=== PATIENT | female | born 1960 | race Caucasian/White ===

== ENCOUNTER → 2019-11-09 | Outpatient (CLI) | payer MEDICARE | END | disposition home or self-care (01) | LOC: RAD 16:09 | PROVIDERS: ATTEND Emergency Medicine | DX: M79.89 Other specified soft tissue disorders (principal); M79.662 Pain in left lower leg ==

== ENCOUNTER 2019-11-18 09:33 | Inpatient (IN) | payer MEDICARE, OTHER ==
[~2019-11-18] VITALS: Ht 160 cm; Wt 69.5 kg
--- NOTE | 2019-11-18 09:53 | NUR ---
FIRST CALL PT IN RESTROOM
[2019-11-18] MEDS ORDERED: ONDANSETRON 2MG/ML, 2ML ONE (11:21)
[2019-11-18] MEDS ORDERED: DICYCLOMINE 10 MG/ML, 2ML ONE (11:21)
[2019-11-18 11:27] LABS: MICROSCOPIC INDICATED
[2019-11-18 11:29] LABS: BASOPHILS % (AUTO) 0 % (0-1); EOSINOPHILS # (AUTO) 0.03 x10^3/uL (0-0.4); EOSINOPHILS % (AUTO) 0 % (1-7); LYMPHOCYTES # (AUTO) 1.41 x10^3/uL (1-3.4); LYMPHOCYTES % (AUTO) 8 % (22-44); MD NO; MEAN CORPUSCULAR HEMOGLOBIN 30.1 pg (27.0-34.8); MEAN CORPUSCULAR HGB CONC 33.3 g/dL (32.4-35.8); MEAN PLATELET VOLUME 8.8 fL (7.4-10.4); MONOCYTES # (AUTO) 0.63 x10^3/uL (0.2-0.8); MONOCYTES % (AUTO) 4 % (2-9); NEUTROPHILS # (AUTO) 15.51 x10^3/uL (1.8-6.8); NEUTROPHILS % (AUTO) 88 % (42-75); PLATELET COUNT 309 x10^3/uL (130-400); RED BLOOD COUNT 4.92 x10^6/uL (3.82-5.3); RED CELL DISTRIBUTION WIDTH 13.7 % (9.6-15.2)
--- NOTE | 2019-11-18 11:29 | NUR ---
PT RESTING IN BED, MEDICATED FOR N/V/D PER ORDERS. PT ON MONITORS,VSS. PT AWARE NEEDS STOOL SAMPLE. PT WITH CALL LIGHT IN REACH, WILL REASSESS. CONT TO MONITOR.
[2019-11-18 11:38] LABS: ALANINE AMINOTRANSFERASE 19 U/L (12-78); ALBUMIN 3.3 g/dL (3.4-5.0); ANION GAP 9 mmol/L (5-15); CALCIUM 8.8 mg/dL (8.5-10.1); CHLORIDE 110 mmol/L (98-107)
[2019-11-18 11:41] LABS: ALKALINE PHOSPHATASE 112 U/L (45-117); BILIRUBIN,TOTAL 0.5 mg/dL (0.2-1.0); TOTAL PROTEIN 7.2 g/dL (6.4-8.2)
[2019-11-18 11:46] LABS: INTERNATIONAL NORMALIZED RATIO 0.96 (0.93-1.1); PROTHROMBIN TIME 10.2 Seconds (9.6-11.5)
[2019-11-18] MEDS ORDERED: SODIUM CHLORIDE 0.9% 1,000ML IVBOLUS ONE (12:00)
[2019-11-18] MEDS ORDERED: ONDANSETRON 2MG/ML, 2ML IVPush ONE (12:00)
[2019-11-18] MEDS ORDERED: SODIUM CHLORIDE FLUSH 10ML SYR IVF ONE (12:00)
[2019-11-18] MEDS ORDERED: DICYCLOMINE 10 MG/ML, 2ML IM ONE (12:00)
--- NOTE | 2019-11-18 12:00 | NUR ---
REPORT GIVEN TO YANN AVERY.
[2019-11-18] MEDS ORDERED: OMNIPAQUE 350 MG/ML, 100ML BOTTLE ONE (12:37)
--- NOTE | 2019-11-18 13:49 | NUR ---
PT ATEMPTED TO PROVIDE A STOOL SAMPLE WITH NO LUCK. PT STATED SHE WILL TRY AGIAN SHORTLY
[2019-11-18] MEDS ORDERED: METRONIDAZOLE PMX 500MG/100ML 100 ML IV ONE (14:00)
[2019-11-18] MEDS ORDERED: METRONIDAZOLE PMX 500MG/100ML 100 ML ONE (14:01)
[2019-11-18 16:08] VITALS: BP 133/81
[2019-11-18] MEDS ORDERED: ONDANSETRON ODT 4 MG PO PRN (16:30)
[2019-11-18] MEDS ORDERED: ACETAMINOPHEN 325 MG TABLET PO PRN (16:30)
[2019-11-18] MEDS ORDERED: ENALAPRILAT 1.25 MG/ML, 2ML IVPush PRN (16:30)
[2019-11-18] MEDS ORDERED: ALBUTEROL HFA 90 MCG/SPRAY INH PRN (16:30)
[2019-11-18] MEDS ORDERED: DIAZEPAM 5 MG TABLET PO PRN (16:30)
[2019-11-18] MEDS ORDERED: ONDANSETRON 2MG/ML, 2ML IVPush PRN (16:30)
[2019-11-18] MEDS ORDERED: LABETALOL 5MG/ML, 20ML IVPush PRN (16:30)
[2019-11-18] MEDS: VANCOMYCIN 50 MG/ML ORAL SUSP PO SCH ×2 (17:14→23:02)
[2019-11-18] MEDS: NS + 20MEQ KCL 1,000 ML IV SCH (17:14)
[2019-11-18] MEDS: ENOXAPARIN 40 MG/0.4 ML SQ SCH (17:14)
[2019-11-18] MEDS: PIPERACILLIN/TAZO/PMX 4.5GM 100 ML IV SCH (18:26)
[2019-11-18] MEDS ORDERED: DICYCLOMINE 10 MG/ML, 2ML IM PRN (19:00)
[2019-11-18 19:14] VITALS: BP 131/82
[2019-11-18] MEDS: FAMOTIDINE 20 MG TABLET PO SCH (21:48)
[2019-11-18] MEDS: KETOROLAC 30 MG/1 ML IV PRN (23:02)
[2019-11-18 23:34] LABS: CLOSTRIDIUM DIFFICILE ANTIGEN NEGATIVE; CLOSTRIDIUM DIFFICILE TOXIN NEGATIVE (Negative)
[2019-11-19] MEDS: PIPERACILLIN/TAZO/PMX 4.5GM 100 ML IV SCH ×5 (00:55→23:45)
[2019-11-19 01:16] VITALS: BP 127/80
[2019-11-19 06:17] LABS: ANION GAP 6 mmol/L (5-15); CALCIUM 7.9 mg/dL (8.5-10.1); CHLORIDE 113 mmol/L (98-107); CREATININE 0.77 mg/dL (0.55-1.02)
[2019-11-19] MEDS: VANCOMYCIN 50 MG/ML ORAL SUSP PO SCH (06:20)
[2019-11-19] MEDS: KETOROLAC 30 MG/1 ML IV PRN (06:20)
[2019-11-19 06:21] LABS: MEAN CORPUSCULAR HGB CONC 33.1 g/dL (32.4-35.8); MEAN PLATELET VOLUME 8.5 fL (7.4-10.4); PLATELET COUNT 236 x10^3/uL (130-400); RED BLOOD COUNT 4.19 x10^6/uL (3.82-5.3); RED CELL DISTRIBUTION WIDTH 14.1 % (9.6-15.2)
[2019-11-19 06:43] LABS: BASOPHILS # (AUTO) 0.05 x10^3/uL (0-0.1); BASOPHILS % (AUTO) 1 % (0-1); EOSINOPHILS # (AUTO) 0.13 x10^3/uL (0-0.4); EOSINOPHILS % (AUTO) 1 % (1-7); LYMPHOCYTES # (AUTO) 1.56 x10^3/uL (1-3.4); LYMPHOCYTES % (AUTO) 15 % (22-44); MD SCAN; MONOCYTES # (AUTO) 0.74 x10^3/uL (0.2-0.8); MONOCYTES % (AUTO) 7 % (2-9); NEUTROPHILS # (AUTO) 7.74 x10^3/uL (1.8-6.8); NEUTROPHILS % (AUTO) 76 % (42-75)
[2019-11-19] MEDS: NS + 20MEQ KCL 1,000 ML IV SCH (06:47)
[2019-11-19 07:50] VITALS: BP 124/76
[2019-11-19] MEDS: FLUTICASONE/VILANTEROL 200-25MCG/INH INH SCH (08:11)
[2019-11-19] MEDS: FAMOTIDINE 20 MG TABLET PO SCH ×2 (08:54→21:00)
[2019-11-19] MEDS: POTASSIUM CHLORIDE 20 MEQ in SODIUM CHLORIDE 0.45% 1,000 ML IV SCH (12:05)
[2019-11-19 13:05] VITALS: BP 108/69
[2019-11-19] MEDS: ENOXAPARIN 40 MG/0.4 ML SQ SCH (18:32)
[2019-11-19 20:51] VITALS: BP 120/83
[2019-11-20 00:16] VITALS: BP 118/72
[2019-11-20] MEDS: POTASSIUM CHLORIDE 20 MEQ in SODIUM CHLORIDE 0.45% 1,000 ML IV SCH (04:30)
[2019-11-20 04:50] LABS: ANION GAP 5 mmol/L (5-15); CHLORIDE 114 mmol/L (98-107)
[2019-11-20 04:51] LABS: CREATININE 0.82 mg/dL (0.55-1.02)
[2019-11-20 04:53] LABS: BASOPHILS # (AUTO) 0.03 x10^3/uL (0-0.1); BASOPHILS % (AUTO) 0 % (0-1); EOSINOPHILS # (AUTO) 0.21 x10^3/uL (0-0.4); EOSINOPHILS % (AUTO) 3 % (1-7); LYMPHOCYTES # (AUTO) 1.41 x10^3/uL (1-3.4); LYMPHOCYTES % (AUTO) 19 % (22-44); MD NO; MEAN PLATELET VOLUME 8.8 fL (7.4-10.4); MONOCYTES # (AUTO) 0.56 x10^3/uL (0.2-0.8); MONOCYTES % (AUTO) 8 % (2-9); NEUTROPHILS # (AUTO) 5.25 x10^3/uL (1.8-6.8); NEUTROPHILS % (AUTO) 71 % (42-75); PLATELET COUNT 214 x10^3/uL (130-400); RED BLOOD COUNT 4.16 x10^6/uL (3.82-5.3); RED CELL DISTRIBUTION WIDTH 14.1 % (9.6-15.2)
[2019-11-20] MEDS ORDERED: ALBUTEROL HFA 90 MCG/SPRAY INH PRN (05:00)
[2019-11-20] MEDS: FLUTICASONE/VILANTEROL 200-25MCG/INH INH SCH (06:30)
[2019-11-20] MEDS: PIPERACILLIN/TAZO/PMX 4.5GM 100 ML IV SCH ×3 (06:36→18:28)
[2019-11-20] MEDS ORDERED: POTASSIUM CHLORIDE 20 MEQ TAB.ER.PRT PO ONE (07:30)
[2019-11-20 07:51] VITALS: BP 130/73
[2019-11-20] MEDS: FAMOTIDINE 20 MG TABLET PO SCH ×2 (08:10→21:19)
[2019-11-20] MEDS: SIMETHICONE 125 MG CHEW TAB PO PRN ×2 (09:49→17:14)
[2019-11-20] MEDS ORDERED: LOPERAMIDE 2 MG CAPSULE PO ONE (10:00)
[2019-11-20] MEDS: LACTOBACILLUS CHEW TABLET PO SCH ×3 (12:49→21:20)
[2019-11-20 13:18] VITALS: BP 100/67
[2019-11-20] MEDS: ENOXAPARIN 40 MG/0.4 ML SQ SCH (17:14)
[2019-11-20] MEDS: LOPERAMIDE 2 MG CAPSULE PO PRN (17:14)
[2019-11-20 19:32] VITALS: BP 113/73
[2019-11-21] MEDS: PIPERACILLIN/TAZO/PMX 4.5GM 100 ML IV SCH ×2 (00:29→05:53)
[2019-11-21] MEDS: SIMETHICONE 125 MG CHEW TAB PO PRN ×2 (00:29→08:02)
[2019-11-21 01:10] VITALS: BP 120/75
[2019-11-21 03:44] LABS: ANION GAP 9 mmol/L (5-15); CALCIUM 8.1 mg/dL (8.5-10.1); CHLORIDE 112 mmol/L (98-107)
[2019-11-21 03:45] LABS: CREATININE 0.89 mg/dL (0.55-1.02)
[2019-11-21] MEDS: LACTOBACILLUS CHEW TABLET PO SCH (05:53)
[2019-11-21] MEDS: LOPERAMIDE 2 MG CAPSULE PO PRN (08:02)
[2019-11-21] MEDS: FAMOTIDINE 20 MG TABLET PO SCH (08:02)
[2019-11-21] MEDS: FLUTICASONE/VILANTEROL 200-25MCG/INH INH SCH (08:03)
[2019-11-21 08:05] VITALS: BP 131/70
[2019-11-21] MEDS ORDERED: LEVO750T6 PO (10:35)
[2019-11-21] MEDS ORDERED: METR-90 PO (10:35)
[2019-11-21] MEDS ORDERED: SIME125T PO (10:35)
[2019-11-21] MEDS ORDERED: LOPE2CAP PO (10:35)
== END 2019-11-21 12:10 | disposition home or self-care (01) | DRG 872 ==
LOC: ED 10:31 → EDIP 13:04 → 3N 15:33
PROVIDERS: ADMIT Hospitalist; ATTEND Hospitalist
DX: A41.9 Sepsis, unspecified organism (principal); A09 Infectious gastroenteritis and colitis, unspecified; E87.2 Acidosis; E86.0 Dehydration; E87.6 Hypokalemia; M06.9 Rheumatoid arthritis, unspecified; I10 Essential (primary) hypertension; G89.0 Central pain syndrome; J45.909 Unspecified asthma, uncomplicated; R65.20 Severe sepsis without septic shock; Z80.7 Family history of other malignant neoplasms of lymphoid, hematopoietic and related tissues; Z98.41 Cataract extraction status, right eye
CPT/HCPCS: 36415; 74177; 80048; 80053; 81001; 83605; 83690; 83735; 84100; 85025; 85610; 87040; 87046; 87077; 87086; 87186; 87324; 87427; 89055; 96374; 96375; G0378; J1650; J1885; J2405; J2543; J3370; J3480; Q9967; J0500; J7030

== ENCOUNTER 2020-06-24 12:16 | Outpatient (CLI) | payer MEDICARE, OTHER ==
[~2020-06-24 12:16] MED LIST: LEVO750T6 PO; LOPE2CAP PO; METR-90 PO; SIME125T PO
== END 2020-06-24 23:59 | disposition home or self-care (01) ==
LOC: CFH 12:16
PROVIDERS: ATTEND Internal Medicine
DX: Z12.31 Encounter for screening mammogram for malignant neoplasm of breast (principal)
CPT/HCPCS: 77063; 77067